=== PATIENT | male | born 1940 | race Caucasian/White ===

== ENCOUNTER 2024-04-29 13:41 | Emergency (ER) | payer MEDICARE, OTHER ==
[2024-04-29 15:05] LABS: Hematocrit 14.2 % (38.8-50.0); Hemoglobin 4.5 g/dL (13.5-17.5); Mean Corpuscular HGB CONC 31.7 g/dL (32.0-36.0); Mean Corpuscular Hemoglobin 31.9 pg (27.0-33.0); Mean Corpuscular Volume 100.7 fL (81.2-95.1); Mean Platelet Volume 11.7 fL (7.4-10.4); Platelet Count 148 10x3/uL (150-450); RBC Distribution Width 17.9 % (11.5-14.5); Red Blood Cell (RBC) Count 1.41 10x6/uL (4.32-5.72); White Blood Cell (WBC) Count 22.3 10x3/uL (3.5-10.5)
[2024-04-29 15:09] LABS: INR-International Normal Ratio 1.1; PTT 22.9 sec (22.0-33.0); Prothrombin Time 11.9 sec (9.5-12.1)
[2024-04-29 15:11] LABS: ALT (SGPT) 14 U/L (8-55); AST (SGOT) 17 U/L (5-34); Albumin 3.3 g/dL (3.4-4.8); Alkaline Phosphatase 39 U/L (40-110); Anion Gap 13 mmol/L (10-20); BUN (Urea Nitrogen) 82 mg/dL (8.4-25.7); Bilirubin, Total 0.3 mg/dL (0.2-1.2); Calc. Creatinine Clearance 0 mL/min (70-130); Calcium 9.2 mg/dL (7.8-10.44); Carbon Dioxide 19 mmol/L (23-31); Chloride 111 mmol/L (98-107); Estimated GFR 24; Globulin 2.3 g/dL (2.4-3.5); Glucose 141 mg/dL (83-110); Potassium 4.9 mmol/L (3.5-5.1); Protein, Total 5.6 g/dL (5.8-8.1); Sodium 138 mmol/L (136-145)
[2024-04-29 16:09] LABS: Band 1 % (5-11); Lymphocytes 67 % (21-51); Monocytes 2 % (0-10)
[2024-04-29 16:10] LABS: Anisocytosis SLIGHT = 6-15 cells (100X) (0-5/hpf); Hypochromia SLIGHT = 6-15 cells (100X) (0-5/hpf); Macrocytosis SLIGHT = 6-15 cells (100X) (0-5/hpf); Neutrophil 29 % (42-75)
[2024-04-29 16:11] LABS: Polychromasia MODERATE = 3-4 cells (100X) (0-2/hpf)
[2024-04-29 16:12] LABS: Basophilic Stippling SLIGHT = 1-2 cells (100X) (None Seen)
[2024-04-29 16:15] LABS: Platelet Adequacy Comment Appears Adequate
[2024-04-29 16:16] LABS: MDiff Complete? YES
[2024-04-29 17:18] LABS: Iron 80 ug/dL (65-175); Iron Binding Capacity, Total 234 mcg/dL (261-462)
== END 2024-04-29 21:02 | disposition admitted as inpatient to this hospital (09) ==
LOC: CSHERS 13:41
DX: K92.2 Gastrointestinal hemorrhage, unspecified (principal); D64.9 Anemia, unspecified; I10 Essential (primary) hypertension; K21.9 Gastro-esophageal reflux disease without esophagitis; Z79.899 Other long term (current) drug therapy
CPT/HCPCS: 36430; 80053; 82728; 83540; 83550; 85025; 85610; 85730; 86850; 86900; 86901; 86920; 93005; 99285; P9016; 93010